=== PATIENT | female | born 1965 | race Caucasian/White ===

== ENCOUNTER 2018-09-26 09:05 | Emergency (ER) | payer OTHER ==
[2018-09-26 09:23] VITALS: BP 143/80; PULSE 79; TEMP 99; BMI 31.2
--- NOTE | 2018-09-26 10:33 | PDOC ---
History of Present Illness - General Chief Complaint: Injury Stated Complaint: INJURY, HEADACHE Time Seen by Provider: 09/26/18 10:23 History Source: Patient Exam Limitations: No Limitations - History of Present Illness Initial Comments: CHIEF COMPLAINT: 53 y/o afebrile female c/o headache, dizziness and pain s/p slip and fall yesterday. HISTORY OF PRESENT ILLNESS: While talking to her daughter the patient slipped and fell down 8 stairs last night. She states she passed out and daughter confirms "for a few seconds". Her front tooth was knocked out. She states she has a really bad headache, overall body pain, nausea and dizziness since yesterday. She took Ibuprofen last night. SHe denies numbness/tingling of extremities, CP, SOB, blurry vision, seizures, slurred speech. She states she felt completely normal prior to slipping. Vital signs on arrival are within normal limits. REVIEW OF SYSTEMS: GENERAL/CONSTITUTIONAL: No fever/chills. No weakness. No weight change. HEAD, EYES, EARS, NOSE AND THROAT: No change in vision. No ear pain or discharge. No sore throat. CARDIOVASCULAR: No chest pain or shortness of breath. RESPIRATORY: No cough, wheezing, or hemoptysis. GASTROINTESTINAL: +nausea. No vomiting, diarrhea. GENITOURINARY: No dysuria, frequency, or change in urination. MUSCULOSKELETAL: +overall body pain. No neck or back pain. SKIN: No rash or easy bruising. NEUROLOGIC: +headache, dizziness, LOC. No numbness/tingling. PHYSICAL EXAM: GENERAL: The patient is awake, alert, and fully oriented, in no acute distress. HEAD: No hematomas. Abrasions with surrounding swelling and erythema to anterior forehead and upper lip without open wounds. No battles signs. No raccoon eyes. NECK: No midline cervical spine TTP or step offs. Full ROM of cervical spine without pain. ENT: Pupils equal, round and reactive to light, extraocular movements intact, sclera anicteric, conjunctiva clear. No entrapment or pain with EOMs. No septal hematomas or blood in nares. No hemotympanum b/l. No orbital swelling b/l. No crepitus or TTP of orbits. Some TTP of nasal bone without crepitus or deformities. Right upper tooth missing. Swelling to right upper lip. No trismus. LUNGS: Clear to auscultation bilaterally. Normal excursion. No respiratory distress or use of accessory muscles. CV: RRR, S1/S2, no MRG. Cap refill < 2 sec. ABDOMEN: Soft, non-distended, non-tender even to deep palpation, no hepatomegaly or splenomegaly, no masses. EXTREMITIES: Normal range of motion, no edema. NEUROLOGICAL: Normal speech, normal gait. CN II-XII grossly intact. Normal finger to nose. Normal rapid alternating movements. SKIN: Warm, dry, normal turgor, no rashes or lesions noted. Past History - Past Medical History Allergies/Adverse Reactions: Allergies Allergy/AdvReac Type Severity Reaction Status Date / Time No Known Allergies Allergy Verified 09/26/18 09:22 Home Medications: Ambulatory Orders Sertraline HCl [Zoloft] 100 mg PO DAILY 09/26/18 Tramadol HCl 50 mg PO TID #20 tablet MDD 4 09/26/18 Ziprasidone HCl [Geodon] 40 mg PO DAILY 09/26/18 COPD: No - Immunization History Immunization Up to Date: Yes - Suicide/Smoking/Psychosocial Hx Smoking History: Never smoked Hx Alcohol Use: No Drug/Substance Use Hx: No Substance Use Type: None *Physical Exam - Vital Signs Last Vital Signs Temp Pulse Resp BP Pulse Ox 99.0 F 79 16 143/80 98 09/26/18 09:20 09/26/18 09:20 09/26/18 09:20 09/26/18 09:20 09/26/18 09:20 Medical Decision Making - Medical Decision Making A/P: 53 y/o female with headache, dizziness, nausea and overall body pain since falling down 8 stairs last night. Plan is as follows: 1. Head CT 2. Facial bones CT Head CT IMPRESSION: No evidence of a focal intracranial lesion or hemorrhage seen. MIld soft tissue swelling of the scalp over the left side of the forehead. Facial bones CT IMPRESSION: No gross fracture identified. Both orbits appear unremarkable. Mild soft tissue swelling of the scalp over the left side of the forehead. Gave the patient her results. Gave IM toradol Will send rx for tramadol. Suggested ice, rest and f/u with her doctor and dentist next week. Patient instructed to return to the ER with any worsening or concerning symptoms. The patient verbalizes understanding of all instructions, has no further questions and is awaiting discharge. *DC/Admit/Observation/Transfer Diagnosis at time of Disposition: Multiple abrasions Head trauma Qualifiers: Encounter type: initial encounter Qualified Code(s): S09.90XA - Unspecified injury of head, initial encounter - Discharge Dispostion Disposition: HOME Condition at time of disposition: Good - Referrals Referrals: Javon Curtis MD [Primary Care Provider] - - Patient Instructions Printed Discharge Instructions: How to Prevent Falls, DI for Closed Head Injury Additional Instructions: Discharge Instructions: -The cat scans of your head and face were normal -A prescription for pain medication has been sent to your pharmacy -Please ice your face to help with swelling -Follow up with your doctor and dentist on Saturday -Return to the ER with any worsening or concerning symptoms - Post Discharge Activity
[2018-09-26] MEDS ORDERED: KETOROLAC TROMETHAMINE 60 MG/2 ML VIAL IM ONE (12:15)
[2018-09-26] MEDS ORDERED: KETOROLAC TROMETHAMINE 60 MG/2 ML VIAL ONE (12:19)
== END 2018-09-26 12:25 | disposition home or self-care (01) ==
LOC: JERFT 09:05
PROC: 3E0233Z Introduction of Anti-inflammatory into Muscle, Percutaneous Approach (ICD-10-PCS; principal; 2018-09-26)
DX: T14.8XXA Other injury of unspecified body region, initial encounter (principal); X58.XXXA Exposure to other specified factors, initial encounter; Y93.9 Activity, unspecified; Y92.89 Other specified places as the place of occurrence of the external cause; S09.90XA Unspecified injury of head, initial encounter
CPT/HCPCS: 70450-TC; 70486-TC; 96372; 99281-25

== ENCOUNTER 2022-08-04 14:37 | Emergency (ER) | payer OTHER ==
[2022-08-04 14:52] VITALS: BP 144/80; PULSE 96; RESP 18; TEMP 97.8; BMI 33.0
[2022-08-04 16:37] LABS: EPI CELLS >36 /uL (0-25.1); HYALINE CASTS 3 /uL (0-3.1); PH,URINE 5.5 (5.0-8.0); URINE APPEARANCE CLOUDY; URINE BACTERIA 5273 /uL (0-1359); URINE BILIRUBIN NEGATIVE (NEGATIVE); URINE COLOR YELLOW; URINE GLUCOSE (UA) NEGATIVE (NEGATIVE); URINE KETONE TRACE (NEGATIVE); URINE LEUK ESTERASE NEGATIVE (NEGATIVE); URINE NITRITE NEGATIVE (NEGATIVE); URINE PROTEIN TRACE (NEGATIVE); URINE RBC 22 /uL (0-23.9); URINE WBC 11 /uL (0-25.8)
[2022-08-04 16:45] LABS: BASO % 0.6 % (0-2.0); EOS % 0.8 % (0-4.5); HEMATOCRIT 38.7 % (32.4-45.2); HEMOGLOBIN 12.7 GM/dL (10.7-15.3); LYMPH % 23.8 % (8-40); MCH 26.4 pg (25.7-33.7); MCHC 32.8 g/dl (32.0-36.0); MEAN CELL VOLUME 80.4 fl (80-96); MEAN PLT VOLUME 10.6 fl (7.5-11.1); NEUT % 66.8 % (42.8-82.8); PLATELET COUNT 216 10^3/uL (134-434); RBC 4.81 M/mm3 (3.60-5.2); RDW 13.9 % (11.6-15.6); WHITE BLOOD COUNT 9.4 K/mm3 (4.0-10.0)
[2022-08-04 17:16] LABS: CALCIUM 9.1 mg/dL (8.5-10.1)
[2022-08-04 17:17] LABS: ALBUMIN 3.6 g/dl (3.4-5.0); BLOOD UREA NITROGEN 14.7 mg/dL (7-18)
[2022-08-04 17:19] LABS: CREATININE 0.7 mg/dL (0.55-1.3)
[2022-08-04 17:21] LABS: BILIRUBIN,TOTAL 0.4 mg/dL (0.2-1); TOT PROT 7.4 g/dl (6.4-8.2)
== END 2022-08-04 18:36 | disposition home or self-care (01) ==
LOC: JERFT 14:37
PROC: 0HCNXZZ Extirpation of Matter from Left Foot Skin, External Approach (ICD-10-PCS; principal; 2022-08-04)
DX: S90.852A Superficial foreign body, left foot, initial encounter (principal); N39.0 Urinary tract infection, site not specified; W45.8XXA Other foreign body or object entering through skin, initial encounter
CPT/HCPCS: 36415; 73630-TC-RT-FY; 80053; 81003; 85025; 87086; 99284-25

== ENCOUNTER 2023-12-21 06:30 | Emergency (ER) | payer OTHER ==
[2023-12-21 06:38] VITALS: BP 115/73; PULSE 76; RESP 20; TEMP 97.4; BMI 31.2
[2023-12-21 08:17] LABS: URINE APPEARANCE CLOUDY; URINE BILIRUBIN NEGATIVE (NEGATIVE); URINE COLOR YELLOW; URINE GLUCOSE (UA) NEGATIVE (NEGATIVE); URINE KETONE NEGATIVE (NEGATIVE); URINE LEUK ESTERASE NEGATIVE (NEGATIVE); URINE NITRITE NEGATIVE (NEGATIVE); URINE PROTEIN NEGATIVE (NEGATIVE); URINE UROBILINOGEN 0.2 mg/dL (0.2-1.0)
== END 2023-12-21 08:38 | disposition home or self-care (01) ==
LOC: JER 06:30
DX: R21 Rash and other nonspecific skin eruption (principal); B35.6 Tinea cruris
CPT/HCPCS: 81003; 87086; 99283-25